=== PATIENT | male | born 1985 | race African-American/Black ===

== ENCOUNTER 2018-04-26 18:23 | Emergency (ER) | payer SELFPAY ==
[~2018-04-26] VITALS: Ht 175.3 cm; Wt 97.7 kg
[2018-04-26 18:27] VITALS: BP 130/80
[2018-04-26] MEDS ORDERED: IBUPROFEN 800 MG TABLET PO ONE (19:45)
== END 2018-04-26 20:17 | disposition home or self-care (01) ==
LOC: EMS 18:24
DX: S62.665A Nondisplaced fracture of distal phalanx of left ring finger, initial encounter for closed fracture (principal); R03.0 Elevated blood-pressure reading, without diagnosis of hypertension; W01.0XXA Fall on same level from slipping, tripping and stumbling without subsequent striking against object, initial encounter; Y93.89 Activity, other specified; Y92.89 Other specified places as the place of occurrence of the external cause; Y99.8 Other external cause status

== ENCOUNTER 2022-12-27 02:35 | Emergency (ER) | payer SELFPAY | END 2022-12-27 02:45 | disposition left against medical advice (07) | LOC: EMS 02:35 | DX: Z53.21 Procedure and treatment not carried out due to patient leaving prior to being seen by health care provider (principal) ==